=== PATIENT | male | born 1995 | race Two or more races ===

== ENCOUNTER → 2017-04-05 | Outpatient (REF) | payer OTHER | LOC: M SMT 09:23 | PROVIDERS: ATTEND Nurse Practitioner Women's Health | DX: N39.3 Stress incontinence (female) (male) (principal) ==

== ENCOUNTER → 2017-04-19 | Outpatient (CLI) | payer OTHER ==
--- NOTE | 2017-04-19 15:09 | REP ---
Clinical: Stress incontinence and urinary urgency. Technique: Real time salgado scale ultrasound examination using curved array transducer. Findings: The bilateral kidneys are normal in contour, size, echogenicity, and reniform shape without hydronephrosis, nephrolithiasis, cystic or mass lesion. No perinephric fluid collections are identified. Right kidney measures 10.7 x 5.4 x 4.1 cm. Left kidney measures 11.3 x 4.7 x 5.6 cm. The bladder demonstrates minimal layering debris, but normal bilateral ureteral jets, bladder wall and no obvious mass lesion or significant abnormality. The prostate gland is normal and measures 3.3 x 3.7 x 2.6 cm. Prevoid bladder measures 9.1 x 8.8 x 6.7 cm (282 ml). Postvoid bladder measures 3.4 x 3.7 x 1.6 cm (10 ml). Postvoid residual equals 4%. Impression: Normal renal and bladder ultrasound. Signed by Dario Velasquez MD 04/19/2017 03:00 P
== END ==
LOC: EDUNIT# 13:30 → M SMT 13:46
PROVIDERS: ATTEND Nurse Practitioner Women's Health
DX: N39.3 Stress incontinence (female) (male) (principal); N39.43 Post-void dribbling; R39.15 Urgency of urination

== ENCOUNTER 2018-11-30 20:08 | Emergency (ER) | payer OTHER ==
[~2018-11-30] VITALS: Ht 180.3 cm; Wt 72.7 kg
[2018-11-30] MEDS ORDERED: LIDOCAINE 1% SDV 5 ML VIAL DILUENT ONE (21:30)
[2018-11-30] MEDS ORDERED: cefTRIAXone SOD 1 GM VIAL (J0696) IM ONE (21:30)
[2018-11-30] MEDS ORDERED: KEFL500C17 PO (21:38)
[2018-11-30 21:51] VITALS: BP 121/71
== END 2018-11-30 21:52 | disposition home or self-care (01) ==
LOC: M ED 20:08
DX: L03.115 Cellulitis of right lower limb (principal)
CPT/HCPCS: 96372; 99283; J0696